=== PATIENT | male | born 2000 | race Caucasian/White ===

== ENCOUNTER 2023-11-16 17:05 | Emergency (ER) | payer OTHER ==
[~2023-11-16] VITALS: Ht 180.3 cm; Wt 61.3 kg
[2023-11-16] MEDS ORDERED: CITALOPRAM HYDROBROMIDE 20 MG TAB PO ONE (18:15)
[2023-11-16] MEDS ORDERED: CITALOPRAM HBR20 MG PO (18:18)
--- OUTSIDE RECORDS SUMMARY | 2023-11-16 18:33 | XMS ---
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 E.D. VISIT COUNT (12 MO.) 2 MARCO ANTONIO [facility] TOTAL 4 NOTE: Visits indicate total known visits. 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 SEIZURE EMS INPATIENT VISIT TRACKING (12 MO.) 11/08/2023 17:59 [facility] TYPE: Observation COMPLAINT: - SI [email or web address]
[2023-11-16 18:45] VITALS: BP 115/68
== END 2023-11-16 18:46 | disposition home or self-care (01) ==
LOC: ED 17:05
DX: F41.9 Anxiety disorder, unspecified (principal)
CPT/HCPCS: 99282